=== PATIENT | female | born 1955 | race African-American/Black ===

== ENCOUNTER → 2025-09-01 | Outpatient (CLI) | payer MEDICARE, MEDICAID, SELFPAY | END | disposition home or self-care (01) | PROVIDERS: PCP Podiatrist; Referring Provider Podiatrist; Visit Provider Student in an Organized Health Care Education/Training Program | DX: I87.311 Chronic venous hypertension (idiopathic) with ulcer of right lower extremity (principal); L97.512 Non-pressure chronic ulcer of other part of right foot with fat layer exposed; R60.0 Localized edema; M16.11 Unilateral primary osteoarthritis, right hip; F79 Unspecified intellectual disabilities | CPT/HCPCS: 97597; 99213; A9270; G0463 ==